=== PATIENT | male | born 1990 ===

== ENCOUNTER 2020-11-15 22:48 | Emergency (ER) | payer SELFPAY ==
[2020-11-15 23:04] VITALS: BP 158/88; PULSE 133; BMI 36.0
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
== END 2020-11-15 23:16 ==
LOC: HO.ED 23:10
PROVIDERS: Emergency Provider Student in an Organized Health Care Education/Training Program
DX: F19.920 Other psychoactive substance use, unspecified with intoxication, uncomplicated (principal); R45.6 Violent behavior
CPT/HCPCS: 99282; 99283